=== PATIENT | male | born 1965 | race Caucasian/White ===

== ENCOUNTER 2017-02-22 07:53 | Emergency (ER) | payer MEDICAID ==
[~2017-02-22] VITALS: Ht 172.7 cm; Wt 72.7 kg
[2017-02-22 07:55] VITALS: BP 105/69
[2017-02-22 08:40] LABS: BLOOD UREA NITROGEN 15 mg/dL (7-18)
== END 2017-02-22 10:24 | disposition home or self-care (01) ==
LOC: ED 08:59
DX: N30.00 Acute cystitis without hematuria (principal); S50.02XA Contusion of left elbow, initial encounter; X58.XXXA Exposure to other specified factors, initial encounter; Y93.89 Activity, other specified; Y92.89 Other specified places as the place of occurrence of the external cause; Y99.8 Other external cause status
CPT/HCPCS: 36415; 80048; 81001; 82040; 85025; 87086; 99285

== ENCOUNTER 2017-05-08 13:45 | Emergency (ER) | payer MEDICAID, OTHER ==
[~2017-05-08] VITALS: Ht 172.7 cm; Wt 71.5 kg
[2017-05-08 13:48] VITALS: BP 106/72
== END 2017-05-08 14:35 | disposition home or self-care (01) ==
LOC: ED 14:25
DX: L03.116 Cellulitis of left lower limb (principal)
CPT/HCPCS: 99283